=== PATIENT | male | born 1945 | race Caucasian/White ===

== ENCOUNTER 2018-03-31 13:30 | Emergency (ER) | payer MEDICARE ==
[~2018-03-31] VITALS: Ht 185.4 cm; Wt 84.1 kg
--- NOTE | 2018-03-31 13:51 | NUR ---
ALEJANDRE ORDERED FROM CENTRAL SUPPLY
--- NOTE | 2018-03-31 16:13 | NUR ---
AWAITING [facility] TRANSPORT BACK TO [facility]
[2018-03-31 16:14] VITALS: BP 124/69
== END 2018-03-31 16:34 | disposition home or self-care (01) ==
LOC: ED 15:50
DX: T83.038A Leakage of other urinary catheter, initial encounter (principal)
CPT/HCPCS: 51702; 99284